=== PATIENT | male | born 1960 | race Caucasian/White ===

== ENCOUNTER → 2018-12-10 | Day surgery (SDC) | payer OTHER ==
[2018-12-06 12:40] LABS: BASOPHILS % 0.7 % (0.0-1.0); EOSINOPHILS % 0.7 % (0.0-6.0); HEMATOCRIT 41.8 % (38.2-49.6); HEMOGLOBIN 14.3 g/dL (14.0-18.0); LYMPHOCYTES # (AUTO) 1.2 (1.0-3.2); LYMPHOCYTES % 26.6 % (18.0-39.1); MEAN CORPUSCULAR HEMOGLOBIN 30.7 pg (28-32); MEAN CORPUSCULAR HGB CONC 34.2 g/dL (31-35); MEAN CORPUSCULAR VOLUME 89.7 fL (81-99); MONOCYTES # (AUTO) 0.5 (0.2-0.8); MONOCYTES % 10.9 % (4.4-11.3); NEUTROPHILS # (AUTO) 2.7 (2.1-6.9); NEUTROPHILS % 60.9 % (38.7-80.0); PLATELET COUNT 217 x10e3/uL (140-360); RED BLOOD COUNT 4.66 x10e6/uL (4.3-5.7); RED CELL DISTRIBUTION WIDTH 12.5 % (11.7-14.4)
[2018-12-06 13:04] LABS: ALANINE AMINOTRANSFERASE 15 IU/L (0-55); ALBUMIN 4.5 g/dL (3.5-5.0); ALBUMIN/GLOBULIN RATIO 1.4 (0.8-2.0); ALKALINE PHOSPHATASE 80 IU/L (40-150); ANION GAP 12.9 mmol/L (8-16); BLOOD UREA NITROGEN 10 mg/dL (7-26); BUN/CREATININE RATIO 11 (6-25); CALCIUM 9.9 mg/dL (8.4-10.2); CARBON DIOXIDE 29 mmol/L (22-29); CHLORIDE 96 mmol/L (98-107); CREATININE, SERUM 0.88 mg/dL (0.72-1.25); EST GLOMERULAR FILTRATION RATE > 60 ML/MIN (60-); GLUCOSE 100 mg/dL (74-118); POTASSIUM 3.9 mmol/L (3.5-5.1); SODIUM 134 mmol/L (136-145)
[~2018-12-10] VITALS: Ht 170.2 cm; Wt 90.7 kg
[2018-12-10] VITALS (12 sets, daily range): BP systolic 110–171; BP diastolic 64–101
[~2018-12-10] MED LIST: ACETAMINOPHEN 325 MG TAB ONE; ALLEGRA-D 12 H1 EACH PO; ASPIR 8181 MG PO; ATROPINE SULFATE 0.1 MG/ML 10ML SYR ONE; BIVALRIUDIN 250 MG/VIAL VIAL IV ONE; DILANTIN100 MG PO; DIOVAN160 MG PO; FENTANYL CITRATE/PF 100MCG/2 ML INJ ONE; HEPARIN SOD (PORCINE) 1000 UNIT/ML 30ML ONE; HEPARIN SOD/SOD CHLORIDE 2,000 ML ONE; IOPAMIDOL 370 MG/ML 200 ML INFUS..BTL INJ ONE; LIDOCAINE HCL 2% LOCAL 20 ML VIAL ONE; LOVASTATIN40 MG PO; MIDAZOLAM HCL 2 MG/2 ML VIAL ONE; NITROGLYCERIN/D5W 200 MCG/ML 250 ML ONE; PLAVIX75 MG PO; PRILOSEC OTC20 MG PO; SODIUM CHLORIDE 0.9% 1000ML 1,000 ML ONE; SODIUM CHLORIDE 0.9% 50ML 50 ML ONE; VENLAFAXINE H37.5 M2 PO; VERAPAMIL HCL 2.5 MG/ML 2 ML VIAL ONE
--- NOTE | 2018-12-10 08:30 | NUR ---
0830 Bedside report received from JACQUELINE Santana.Identiferx2. Alert oriented and appropriate, PERRLA, respirations even and unlabored to room air. Pulses x4 extremities equal and strong. Pedal pulses PT/DP x4, Cap fill brisk < 3 sec. Rt Tr band site w/oozing or hematoma. Normal neurovascular function. Skin warm and dry integrity appears D/I IV 20g to left hand, presents healthy w/o s/s of infiltration or complaint. Abdomen soft and supple. pt offered toileting, denies need to urinate or defecate. No personal affects with patient. Family at home call if not here at 1230. Pt and family verbalizes understanding of POC. Refuses food at this time. Call light at bedside,side rails up,side rails up .Aware of importance to call for assistance. mary lou/rn
--- NOTE | 2018-12-10 10:15 | NUR ---
1015a RADIAL Compression removal: Initial Cuff volume 12 cc 1015a -2cc cc Removed No hematoma/bleeding noted with normal neurovascular function. 1030a -5cc Removed No hematoma/ bleeding noted with normal neurovascular function. 11a -5cc Removed No hematoma/bleeding noted with normal neurovascular function. 1130a -3 cc Removed No hematoma/ bleeding noted with normal neurovascular function. Air removal completed. Pateint refuse arm splint for support Stasis achieved sterile 2x2,Tegaderm, Coban dressing No hematoma, bleeding noted with normal neurovascular function. Wrist splint in place. Pt instructed on POC. Ds/Rn
--- NOTE | 2018-12-10 12:30 | NUR ---
1230 States Tylenol medicated by Luke PHILLIPS has releived SAGE NO further c/o No gross issues pain, pallor pressure or dysrhythmia ds/rn.
--- NOTE | 2018-12-10 13:00 | NUR ---
1300 Pt meets DC criteria. Rt radial assessed for s/s of complication and presence of hematoma. Access and skin warm, dry, no discolor, and pulses present. IV removed from left hand. Distal tip appears intact. VS WNL. Pt denies pain, sob, or need at this time. Family at Brother Dasha [phone]. Review of discharge paperwork and follow up instructions. verbalized understanding. Pt to wheelchair and transported to front of hospital. Transferred to private vehicle under own strength w/o incident with DC paperwork in hand. - ds/rn
--- NOTE | 2018-12-10 13:30 | Operative Report ---
DATE OF PROCEDURE: 12/10/2018 SURGEON: Gianni Kramer MD INDICATIONS: Coronary artery disease, staged intervention for coronary artery disease. PROCEDURES PERFORMED: 1. Left heart catheterization, selective coronary angiography. 2. PTCA and stent placed in the distal right coronary artery. 3. Deployment of right wrist TR band. COMPLICATIONS: None. RECOMMENDATIONS: Dual antiplatelet therapy for at least 6 months. DESCRIPTION OF PROCEDURE: Access obtained in the right radial artery. A 6-Tamazight sheath was placed. Angiomax was administered for anticoagulation. The left main was cannulated using a JR4, 6-Tamazight guiding catheter, 30% ostial left main stenosis, distal right coronary artery extending into right posterior descending artery, 80% stenosis. A short run-through wire was advanced for support. Primary stent 2.75 x 12 mm Resolute [place] deployed at 16 atmospheres, excellent end result, less than 10% residual stenosis, CHA-3 flow. No complications. Right wrist TR band applied. The patient discharged home same day. Gianni Kramer MD KSB/MODL /[id number]
== END | disposition home or self-care (01) ==
LOC: CATH LAB 06:10
PROVIDERS: ATTEND Internal Medicine Interventional Cardiology
DX: I25.118 Atherosclerotic heart disease of native coronary artery with other forms of angina pectoris (principal); I10 Essential (primary) hypertension; E78.5 Hyperlipidemia, unspecified; Z01.812 Encounter for preprocedural laboratory examination; Z68.30 Body mass index [BMI] 30.0-30.9, adult; Z79.02 Long term (current) use of antithrombotics/antiplatelets; Z79.82 Long term (current) use of aspirin; Z82.3 Family history of stroke; Z82.49 Family history of ischemic heart disease and other diseases of the circulatory system; Z80.8 Family history of malignant neoplasm of other organs or systems
CPT/HCPCS: 36415; 80053; 85025; 92928; C1874; J0583; J1644; J2001; J2250; J3010; J7030; Q9967

== ENCOUNTER → 2020-10-29 | Outpatient (CLI) | payer OTHER ==
[~2020-10-29] MED LIST changes: -ACETAMINOPHEN 325 MG TAB ONE; -ATROPINE SULFATE 0.1 MG/ML 10ML SYR ONE; -BIVALRIUDIN 250 MG/VIAL VIAL IV ONE; -FENTANYL CITRATE/PF 100MCG/2 ML INJ ONE; -HEPARIN SOD (PORCINE) 1000 UNIT/ML 30ML ONE; -HEPARIN SOD/SOD CHLORIDE 2,000 ML ONE; -IOPAMIDOL 370 MG/ML 200 ML INFUS..BTL INJ ONE; -LIDOCAINE HCL 2% LOCAL 20 ML VIAL ONE; -MIDAZOLAM HCL 2 MG/2 ML VIAL ONE; -NITROGLYCERIN/D5W 200 MCG/ML 250 ML ONE; -SODIUM CHLORIDE 0.9% 1000ML 1,000 ML ONE; -SODIUM CHLORIDE 0.9% 50ML 50 ML ONE; -VERAPAMIL HCL 2.5 MG/ML 2 ML VIAL ONE
== END ==
LOC: NM 09:16
PROVIDERS: ATTEND Specialist
DX: M54.5 Low back pain (principal); M25.551 Pain in right hip
CPT/HCPCS: 78306; A9503

== ENCOUNTER → 2020-11-19 | Outpatient (CLI) | payer OTHER | LOC: RAD 09:13 | PROVIDERS: ATTEND Family Medicine | DX: Z01.818 Encounter for other preprocedural examination (principal) | CPT/HCPCS: 71046 ==